=== PATIENT | female | born 1990 | race Caucasian/White ===

== ENCOUNTER 2020-08-01 09:43 | Outpatient (REF) | payer OTHER, SELFPAY ==
--- NOTE | 2020-08-01 09:50 | XR_ITS ---
EXAMINATION: XR KNEE, LEFT CLINICAL INFORMATION: Pain. COMPARISON: None. TECHNIQUE: 4 views of the left knee. FINDINGS: No fracture. Trace suprapatellar joint fluid. Alignment is anatomic. Joint spaces are well maintained. No abnormal soft tissue calcification. XR/XR knee LT 4V IMPRESSION: No evidence of acute osseous abnormality.
== END 2020-08-01 09:44 | disposition home or self-care (01) ==
LOC: HO.XRAY 09:43
PROVIDERS: PCP Internal Medicine; Visit Provider Family Medicine
DX: M25.562 Pain in left knee (principal)
CPT/HCPCS: 73564

== ENCOUNTER 2021-09-07 15:13 | Outpatient (REF) | payer OTHER, SELFPAY ==
--- NOTE | ~2021-09-07 | US_ITS ---
EXAMINATION: US PELVIS CLINICAL INFORMATION: Excessive and irregular menses COMPARISON: None TECHNIQUE: Ultrasound of the pelvis is performed using both transabdominal and transvaginal transducers along with Doppler. Transvaginal imaging is performed due to inadequate visualization transabdominally. FINDINGS: The uterus is anteverted and measures 8.8 x 3.6 x 4.8 cm in dimension. No focal lesion is seen. Endometrial thickness is normal measuring 1.3 cm. There are nabothian cysts in the cervix. The ovaries are normal-appearing. The right ovary measures 3.9 x 3.2 x 2.4 cm. The left ovary measures 3.9 x 2 x 2.4 cm. There is no fluid in the pelvis. US/US pelvic and transvaginal IMPRESSION: Normal pelvic ultrasound.
== END 2021-09-07 15:14 | disposition home or self-care (01) ==
LOC: HO.HMGCX 15:13
PROVIDERS: Visit Provider Advanced Practice Midwife
DX: N92.1 Excessive and frequent menstruation with irregular cycle (principal)
CPT/HCPCS: 76830; 76856

== ENCOUNTER 2022-07-05 15:21 | Outpatient (REF) | payer OTHER, SELFPAY ==
[2022-07-06 02:10] LABS: CT PCR NOT DETECTED (Not Detect.); NG PCR NOT DETECTED (Not Detect.)
[2022-07-06 07:12] LABS: Syphilis Screen Nonreactive (Nonreactive)
[2022-07-06 10:11] LABS: BV Int Neg Control Negative (Negative); BV Int Pos Control Positive (Positive)
[2022-07-06 13:25] LABS: HIV AB/AG Nonreactive (Nonreactive); HIV Num 1 0.07 S/CO (0.00-0.99); Hepatitis B Surface Antigen Negative (Negative); ~HepC Num1 0.06 S/CO (0.00-0.79); ~Hepatitis C Antibody Nonreactive (Nonreactive)
[2022-07-11 21:41] LABS: HPV mRNA E6/E7 rflx Not Detected (Not Detected)
== END 2022-07-05 15:22 | disposition home or self-care (01) ==
LOC: HO.LNP 15:21
PROVIDERS: Visit Provider Advanced Practice Midwife
DX: Z01.419 Encounter for gynecological examination (general) (routine) without abnormal findings (principal); Z11.3 Encounter for screening for infections with a predominantly sexual mode of transmission
CPT/HCPCS: 86780; 86803; 87255; 87340; 87389; 87480; 87491; 87510; 87591; 87624; 87660; 88142

== ENCOUNTER 2023-05-03 13:16 | Outpatient (REF) | payer OTHER, SELFPAY ==
--- NOTE | ~2023-05-03 | XR_ITS ---
EXAMINATION: XR CHEST CLINICAL INFORMATION: Wheezing COMPARISON: None available. TECHNIQUE: 2 views of the chest were obtained. FINDINGS: The cardiac silhouette is upper normal in size. Hilar and mediastinal contours are unremarkable. The lungs are clear. No pleural effusion or pneumothorax. Bony structures are normal. XR/XR chest 2V IMPRESSION: Upper normal-size cardiac silhouette. Otherwise unremarkable exam.
== END 2023-05-03 13:17 | disposition home or self-care (01) ==
LOC: HO.HHCX 13:16
PROVIDERS: Visit Provider General Practice
DX: R06.2 Wheezing (principal)
CPT/HCPCS: 71046

== ENCOUNTER 2023-05-03 14:05 | Outpatient (REF) | payer OTHER, SELFPAY ==
[2023-05-03 18:29] LABS: Influenza A PCR NEGATIVE (Negative); Influenza B PCR NEGATIVE (Negative); Resp Syncy Virus RNA Qual PCR NEGATIVE (Negative); SARS COV2 PCR INHOUSE NEGATIVE (Negative)
[2023-05-08 12:03] LABS: West Nile Virus IgM Antibody <0.90 index (<0.90); West Nile Virus, IgG <1.30 index (<1.30)
== END 2023-05-03 14:06 | disposition home or self-care (01) ==
LOC: HO.HHCL 14:05
PROVIDERS: Visit Provider General Practice
DX: Z20.822 Contact with and (suspected) exposure to COVID-19 (principal); J02.9 Acute pharyngitis, unspecified; R50.9 Fever, unspecified
CPT/HCPCS: 0241U; 36415; 86788; 86789

== ENCOUNTER 2024-02-14 15:08 | Outpatient (REF) | payer BC, SELFPAY ==
[2024-02-14 16:13] LABS: MANUAL DIFF FLAG NO
[2024-02-14 16:20] LABS: Basophils Absolute Auto 0.1 X10*3/uL (0.0-0.2); Basophils Percent Auto 0.7 % (0-2); Eosinophils Absolute Auto 0.1 X10*3/uL (0.0-0.4); Eosinophils Percent Auto 1.6 % (0-4); Hematocrit 46.3 % (37.0-47.0); Hemoglobin 14.7 g/dl (12.0-16.0); Imm Gran Abs Auto 0.02 X10*3/uL (0.00-0.03); Imm Gran Pct Auto 0.2 % (0.0-0.4); Lymphocytes Absolute Auto 1.6 X10*3/uL (1.2-4.9); Lymphocytes Percent Auto 17.8 % (20-40); Mean Corpuscular HGB Conc 31.7 g/dl (31.0-35.0); Mean Corpuscular Hemoglobin 26.6 pg (27.0-33.0); Mean Corpuscular Volume 83.9 fL (80.0-98.0); Mean Platelet Volume 11.7 fL (9.4-12.3); Monocytes Absolute Auto 0.5 X10*3/uL (0.1-1.2); Monocytes Percent Auto 5.9 % (2-11); Neutrophils Absolute Auto 6.6 x10*3/uL (2.0-8.3); Neutrophils Percent Auto 73.8 % (45-73); Platelet Count 278 X10*3/uL (160-400); Red Blood Count 5.52 X10*6/uL (4.20-5.50); Red Cell Distribution Width 12.9 % (11.0-16.0); White Blood Count 8.9 X10*3/uL (4.8-10.8)
[2024-02-14 16:26] LABS: Estimated Average Glucose 105 mg/dL; Hemoglobin A1c % 5.3 % (<6.0)
[2024-02-14 16:43] LABS: Alanine Aminotransferase 10 U/L (0-31); Albumin Level 4.5 g/dL (3.5-5.0); Alkaline Phosphatase 57 U/L (39-117); Anion Gap 11 (12-20); Aspartate Amino Transferase 11 U/L (5-31); Bilirubin Total 0.3 mg/dL (0.0-1.0); Blood Urea Nitrogen 8 mg/dL (9-16); Calcium 9.7 mg/dL (8.4-10.2); Carbon Dioxide 26 mmol/L (22-29); Chloride 108 mmol/L (96-108); Estimated Glomerular Filt Rate > 60; Glucose Random 96 mg/dL (60-115); Sodium 141 mmol/L (135-145); Total Protein 7.5 g/dL (6.5-8.0)
[2024-02-14 16:53] LABS: HIV AB/AG Nonreactive (Nonreactive); HIV Num 1 0.05 S/CO (0.00-0.99)
[2024-02-14 17:03] LABS: TSH reflex Free T4 0.47 uIU/mL (0.32-4.0); Vitamin D 25-OH Total 19.5 ng/mL (>30)
[2024-02-14 17:07] LABS: Folate 9.4 ng/mL (> or = 4.0); Vitamin B12 635 pg/mL (200-900)
[2024-02-17 12:39] LABS: RPR Rapid Plasma Reagin NON-REACTIVE (NON-REACTIVE)
[2024-02-17 14:18] LABS: HCV Log PCR <1.18 NOT DETECTED Log IU/mL (NOT DETECTED); HepC Viral Load <15 NOT DETECTED IU/mL (NOT DETECTED)
== END 2024-02-14 15:09 | disposition home or self-care (01) ==
LOC: HO.HHCL 15:08
PROVIDERS: Visit Provider Internal Medicine
DX: Z00.00 Encounter for general adult medical examination without abnormal findings (principal); F41.8 Other specified anxiety disorders; Z13.1 Encounter for screening for diabetes mellitus; Z13.89 Encounter for screening for other disorder
CPT/HCPCS: 36415; 80053; 82306; 82607; 82746; 83036; 84443; 85025; 86592; 87389; 87522

== ENCOUNTER 2024-10-03 10:09 | Outpatient (REF) | payer BC, SELFPAY ==
[2024-10-03 11:30] LABS: HBS Num1 6.36 mIU/mL (0-7.99); HBc Num1 0.04 S/CO (0.00-0.79); HBsAGNum1 0.42 S/CO (0.00-0.99); HIV AB/AG Nonreactive (Nonreactive); HIV Num 1 0.07 S/CO (0.00-0.99); Hepatitis B Core Antibody Nonreactive (Nonreactive); Hepatitis B Surface Antigen Negative (Negative); Syphilis Screen Nonreactive (Nonreactive); ~HepC Num1 0.06 S/CO (0.00-0.79); ~Hepatitis B Surface Antibody NONREACTIVE (Nonreactive); ~Hepatitis C Antibody Nonreactive (Nonreactive)
[2024-10-03 14:25] LABS: CT PCR NOT DETECTED (Not Detect.); NG PCR NOT DETECTED (Not Detect.)
== END 2024-10-03 10:10 | disposition home or self-care (01) ==
LOC: HO.HHCLNP 10:09
PROVIDERS: PCP Internal Medicine; Visit Provider Internal Medicine
DX: Z71.1 Person with feared health complaint in whom no diagnosis is made (principal)
CPT/HCPCS: 36415; 86704; 86706; 86780; 86803; 87255; 87340; 87389; 87491; 87591

== ENCOUNTER 2024-10-03 14:13 | Outpatient (REF) | payer BC, SELFPAY ==
[2024-10-07 20:09] LABS: C. Trachomatis RNA TMA, Throat NOT DETECTED; N. gonorrhoeae RNA TMA, Throat NOT DETECTED
== END 2024-10-03 14:14 | disposition home or self-care (01) ==
LOC: HO.LNP 14:13
PROVIDERS: Visit Provider Internal Medicine
DX: Z71.1 Person with feared health complaint in whom no diagnosis is made (principal)
CPT/HCPCS: 87491; 87591

== ENCOUNTER 2024-10-16 16:20 | Outpatient (REF) | payer BC, SELFPAY ==
--- OUTSIDE RECORDS SUMMARY | 2024-10-16 18:01 | XMS_ITS | Encounter Summary ---
Author Organization [employer] Address [address] [facility] [address] [place] [address] Care Team Providers Care Consumer Electronics Merchandiser Name Role Phone Dary Noguera MD Primary Care Provide r Encounter Details Date Type Department Care Team (Latest Contact Info) Description 10/16/2024 Travel Social History Tobacco Use Types Packs/Day Years Used Date Smoking Tobacco: Never Passive Smoke Exposure: Never Smokeless Tobacco: Never Depression Answer Date Recorded Patient Health Questionnaire-9 Score 22 02/26/2024 Patient Health Questionnaire-9 Score 22 02/26/2024 Last PHQ-9: Questionnaire Data Not on file 0 02/26/2024 Housing Stability Answer Date Recorded What is your housing situation today? I have chhaya braxton 02/14/[address] you li ve. Do you have problems with any of the following? None of the above 02/14/2024 Food Insecurity Answer Date Recorded Within the past 12 months, y ou worried that your food would run out before you got money to buy more: Never True 02/14/2024 Within the past 12 months,th e food you bought just didn't last and you didn't have enough money to get more: Never True Transportation Answer Date Recorded In the past 12 months, has l ack of transportation kept you from medical appts, meetings, work or from getting things needed for daily living? No 02/14/2024 Utilities Answer Date Recorded In the past 12 months, has t he electric, gas, oil or water company threatened to shut off services in your home? No 02/14/2024 Depression Answer Date Recorded Patient Health Questionnaire-2 Score 6 02/26/2024 Internet Access Answer Date Recorded Internet Access Q1 Yes 04/20/2024 Internet Access Q2 Not on file 04/20/2024 Comments Unknown Sex and Gender Information Value Date Recorded Sex Assigned at Female 06/18/2022 10:36 AM EDT Legal Sex Female 10:36 AM EDT Gender Identity Female 06/18/2022 10:36 AM EDT Sexual Orientation Straight 02/13/2024 2: 38 PM EDT documented as of this encounter Plan of Treatment Not on file documented as of this encounter Visit Diagnoses Not on filedocumented in this encounter Additional Health Concerns Assessment Noted Time PHQ-9 Depression Total Score: 22 024 8:45 AM EDT documented as of this encounter Care Teams Consumer Electronics Merchandiser Relationship Specialty Start Date End Date Dary Noguera MD [address] [place] [phone] PCP - General Family Medicine 09/30/19 documented as of this encounter
--- OUTSIDE RECORDS SUMMARY | 2024-10-16 18:01 | XMS_ITS | Encounter Summary ---
Author Organization [employer] Address [address] [facility] [address] [place] [address] Care Team Providers Care Grinder Setup Operator Name Role Phone Dary Noguera MD Primary Care Provide r Reason for Visit * Reason Comments Nurse Visit Encounter Details Date Type Department Care Team (Latest Contact Info) Description 10/16/2024 2:30 PM EST Clinical Support [facility] [address] [place], [place] [phone] Maria L Mckeon, RN [address] [place] [address] Concern about STI in female without diagnosis Social History Tobacco Use Types Packs/Day Years [...] PM EDT documented as of this encounter Progress Notes * Maria L Mckeon RN - 10/16/2024 2:30 PM EST S: Pt was seen in [facility] 10/03/23 for tingling on tongue at which time HSV Cx was ordered and collected. Swab was not able to be run. O: no lesions on tongue at this time. Pt requesting reswab as she saw TNP in test results on MyChart and is worried. Swab recollected and sent out. A/P: Informed will inform her once results are back. documented in this encounter Plan of Treatment Scheduled Orders Name Type Priority Associated Diagnoses Orde r Schedule Herpes Simplex Virus Culture with Reflex Typing Microbiology Routine Concern about STI in female without diagnosis Ordered: 10/16/2024 documented as of this encounter Visit Diagnoses Diagnosis Concern about STI in female without diagnosis documented in this encounter Additional Health Concerns Assessment Noted Time PHQ-9 Depression Total Score: 22 024 8:45 AM EDT documented as of this encounter Care Teams Grinder Setup Operator Relationship Specialty Start Date End Date Dary Noguera MD [address] [place] [address] PCP - General Family Medicine 09/30/19 documented as of this encounter
--- OUTSIDE RECORDS SUMMARY | 2024-10-16 18:01 | XMS_ITS | Encounter Summary ---
Author Organization [employer] Address [address] [facility] [address] [place] [address] Care Team Providers Care Power Crane Operator Name Role Phone Dary Noguera MD Primary Care Provide r Reason for Visit * Reason Comments Walk-In tingling in throat a claudio after sexual encounter 4-5 days.. Encounter Details Date Type Department Care Team ([facility] st Contact Info) Description 10/03/2024 9:20 AM EST Office Visit [facility] [address] [place], [place] [phone] Niles Jones MD [address] [place], [place] [phone] Concern about STI in female without diagnosis (Primary Dx) Social History Tobacco Use Types Packs/Day Years [...] PM EDT documented as of this encounter Last Filed Vital Signs Vital Sign Reading Time Taken Comments Blood Pressure 139/89 10/03/2024 9:13 AM EST Pulse 85 10/03/2024 9:13 AM EST Temperature - - Respiratory Rate 20 10/03/2024 9:13 AM EST Oxygen Saturation 99% 10/03/2024 9:13 AM EST Inhaled Oxygen Concentration - - Weight 67.2 kg (148 lb 3.2 oz) 10/03/2024 9:13 A M EST Height 157.5 cm (5' 2 ) 10/03/2024 9:13 AM EST Body Mass Index 27.11 10/03/2024 9:13 AM EST documented in this encounter Progress Notes * Niles Navarrete MD - 10/03/2024 9:20 AM EST SUBJECTIVE Yanira Love is a 33 y.o. female who presents for Walk-In (tingling in throat area after sexual encounter 4-5 days..). Pt here for a visit, her main concern is that she started feeling a tingling sensation at the tip of her tongue after a recent sexual encounter 5 days ago. She describes the encounter as only oral sex with a male partner, she admits to a previous sexual encounter with same partner, there was protected intercourse with condoms during that encounter. She reports feeling anxious as a result and would like to be tested for STIs. No other symptoms, no vaginal discharge, no sore throat, no rashes Review of Systems Constitutional: Negative for fever. HENT: Negative for sore throat. Respiratory: Negative for cough and shortness of breath. Cardiovascular: Negative for chest pain. Gastrointestinal: Negative for abdominal pain. Genitourinary: Negative for difficulty urinating, dyspareunia, dysuria, genital sores, pelvic pain,vaginal discharge and vaginal pain. Skin: Negative for rash. Neurological: Negative for headaches. No Known Allergies OBJECTIVE Vitals: 10/03/24 0913 BP: 139/89 BP Location: Left arm Patient Position: Sitting BP Cuff Size: Adult Pulse: 85 Resp: 20 SpO2: 99% Weight: 148 lb 3.2 oz (67.2 kg) Height: 5' 2 (1.575 m) Physical Exam Vitals reviewed. Constitutional: Appearance: Normal appearance. HENT: Head: Normocephalic and atraumatic. Right Ear: External ear normal. Left Ear: External ear normal. Nose: Nose normal. Mouth/Throat: Lips: Dunbar. Mouth: Mucous membranes are moist. Pharynx: Oropharynx is clear. Tonsils: No tonsillar exudate or tonsillar abscesses. Comments: Tongue: right at the tip of the tongue there is mild irritation, no ulcer, no blister Eyes: Conjunctiva/sclera: Conjunctivae normal. Cardiovascular: Rate and Rhythm: Normal rate and regular rhythm. Pulmonary: Effort: Pulmonary effort is normal. Breath sounds: Normal breath sounds. Skin: General: Skin is warm. Neurological: Mental Status: She is alert. Mental status is at baseline. Assessment/Plan Problem List Items Addressed This Visit Concern about STI in female without diagnosis - Primary Pt with c/o mild tingling at the tip of her tongue after oral sex five days ago with male partner, no other symptoms On exam mild irritation on the tip of her tongue Plan: Herpes Cx obtained from the tip of her tongue. Other STI testing ordered Discussed with patient PrEP, she promised to think about it, reports using condoms. Instructed to call or come back if she experiences other symptoms Relevant Orders Chlamydia/N. Gonorrhoeae RNA, TMA, Throat Chlamydia/N. Gonorrhoeae RNA, TMA, Urine Hepatitis B Core Antibody, Total Hepatitis B Surface Antibody, Qualitative Hepatitis B surface antigen, EIA Hepatitis C Antibody with Reflex to HCV, RNA, Quantitative, Real-Time PCR HIV-1/2 Antigen and Antibodies, Fourth Generation, with Reflexes Syphilis Screen Herpes Simplex Virus Culture with Reflex Typing documented in this encounter Miscellaneous Notes * Assessment & Plan Note - Niles Navarrete MD - 10/03/2024 10:53 AM EST Associated Problem(s): Concern about STI in female without diagnosis Pt with c/o mild tingling at the tip of her tongue after oral sex five days ago with male partner, no other symptoms On exam mild irritation on the tip of her tongue Plan: Herpes Cx obtained from the tip of her tongue. Other STI testing ordered Discussed with patient PrEP, she promised to think about it, reports using condoms. Instructed to call or come back if she experiences other symptoms documented in this encounter Plan of Treatment Scheduled Orders Name Type Priority Associated Diagnoses Orde r Schedule Chlamydia/N. Gonorrhoeae RNA, TMA, Throat Microbiology Routine Concern about STI in female without diagnosis Expected: 10/03/2024 (Approximate), Expires: 10/03/2025 documented as of this encounter Procedures Procedure Name Priority Date/Time Associated Diagnosis Comments SYPHILIS SCREEN Routine 10/03/2024 10:25 AM EST Concern about STI in female without diagnosis HEPATITIS C AB W/REFL TO HCV RNA, QN, PCR Routine 10/03/2024 10:25 AM EST Concern about STI in female without diagnosis HEPATITIS B SURFACE ANTIGEN, EIA Routine 10/03/2024 10:25 AM EST Concern about STI in female without diagnosis HEPATITIS B CORE AB TOTAL Routine 10/03/2024 10:25 AM EST Concern about STI in female without diagnosis HIV 1/2 ANTIGEN/ANTIBODY, FOURTH GENERATION W/RFL Routine 10/03/2024 10:25 AM EST Concern about STI in female without diagnosis HEPATITIS B SURFACE ANTIBODY, QUALITATIVE Routine 10/03/2024 10:25 AM EST Concern about STI in female without diagnosis CHLAMYDIA/N. GONORRHOEAE RNA, TMA, UROGENITAL Routine 10/03/2024 10:21 AM EST Concern about STI in female without diagnosis HERPES CULTURE WITH REFLEX TYPING Routine 10/03/2024 9:51 AM EST Concern about STI in female without diagnosis documented in this encounter Results * Syphilis Screen (10/03/2024 10:25 AM EST) Syphilis Screen Nonreactive Nonreactive [facility] Blood Venous blood specimen / Unknown 10/03/2024 10:25 AM EST 10/03/2024 10:25 AM EST Niles Navarrete MD LAB BLOOD ORDERABLES Final Result [facility] [address] [place] [phone] * HIV-1/2 Antigen and Antibodies, Fourth Generation, with Reflexes (10/03/2024 10:25 AM EST) HIV AB/AG Nonreactive Nonreactive [facility] Comment:HIV-1 p24 Ag and/or HIV-1/HIV-2 Ab not detected.A test result that is nonreactive does not exclude thepossibility of exposure to or infection with HIV-1 and/orHIV-2. Nonreactive results in this assay for individualswith prior exposure to HIV-1 and/or HIV-2 may be due toantigen and antibody levels that are below the limit ofdetection of this assay.The [employer] HIV Ag/Ab Combo assay result andsupplemental assay results should be interpreted inconjunction with the patient's clinical presentation,history and other laboratory results. If the results areinconsistent with clinical evidence, additional testing issuggested to confirm the result. Blood Venous blood specimen / Unknown 10/03/2024 10:25 AM EST 10/03/2024 10:25 AM EST us Niles Navarrete MD LAB BLOOD ORDERABLES Final Result [facility] [address] [place] [phone] * Hepatitis C Antibody with Reflex to HCV, RNA, Quantitative, Real-Time PCR (10/03/2024 10:25 AM EST) Pathologist [facility] Hepatitis C Antibody Nonreactive Nonreactive [facility] Comment:Antibodies to HCV no t detected; does not exclude early acuteHCV infection. Blood Venous blood specimen / Unknown 10/03/2024 10:25 AM EST 10/03/2024 10:25 AM EST us Niles Navarrete MD LAB BLOOD ORDERABLES Final Result Performing Organization Address City/[facility]/ZIP Co de Phone Number [facility] [address] [place] [phone] * Hepatitis B surface antigen, EIA (10/03/2024 10:25 AM EST) Pathologist [facility] Hepatitis B Surface Ag Negative Negative [facility] Blood Venous blood specimen / Unknown 10/03/2024 10:25 AM EST 10/03/2024 10:25 AM EST Niles Navarrete MD LAB BLOOD ORDERABLES Final Result Performing Organization Address City/[facility]/ZIP Co de Phone Number [facility] [address] [place] [address] [phone] * Hepatitis B Surface Antibody, Qualitative (10/03/2024 10:25 AM EST) ~Hepatitis B Surface Antibody NONREACTIVE Nonreactive [facility] Comment:Nonreactive: < 8.00 mIU/mL Blood Venous blood specimen / Unknown 10/03/2024 10:25 AM EST 10/03/2024 10:25 AM EST Niles Navarrete MD LAB BLOOD ORDERABLES Final Result Performing Organization Address City/[facility]/ZIP Co de Phone Number [facility] [address] [place] [phone] * Hepatitis B Core Antibody, Total (10/03/2024 10:25 AM EST) Hepatitis B Core Antibody Nonreactive Nonreactive [facility] Blood Venous blood specimen / Unknown 10/03/2024 10:25 AM EST 10/03/2024 10:25 AM EST Niles Navarrete MD LAB BLOOD ORDERABLES Final Result Performing Organization Address [facility] de Phone Number [facility] [address] [place] [phone] * Chlamydia/N. Gonorrhoeae RNA, TMA, Urine (10/03/2024 10:21 AM EST) [facility] CT PCR NOT DETECTED Not Detect. [facility] Comment:A not detected test result does not exclude the possibilityof infection because test results can be affected byimproper specimen collection, concurrent antibiotic therapy,or the number of organisms in the specimen which may bebelow the sensitivity of the test. As with many diagnostictests, results from the Xpert CT/NG assay should beinterpreted in conjunction with other laboratory andclinical data available to the clinician.Xpert CT/NG performance has not been evaluated in patientsless than 14 years of age. The assay should not be used forthe evaluationof suspected sexual abuse or for other medico-legalindications. Additional testing is recommended in anycircumstance when false positive or false negative resultscould lead to adverse medical, social or psychologicalconsequences. NG PCR NOT DETECTED Not Detect. [facility] Comment:A not detected test result does not exclude the possibilityof infection because test results can be affected byimproper specimen collection, concurrent antibiotic therapy,or the number of organisms in the specimen which may bebelow the sensitivity of the test. As with many diagnostictests, results from the Xpert CT/NG assay should beinterpreted in conjunction with other laboratory andclinical data available to the clinician.Xpert CT/NG performance has not been evaluated in patientsless than 14 years of age. The assay should not be used forthe evaluationof suspected sexual abuse or for other medico-legalindications. Additional testing is recommended in anycircumstance when false positive or false negative resultscould lead to adverse medical, social or psychologicalconsequences. Urine (Urine, Random) 10/03/2024 10:21 AM EST 10/03/2024 10:39 AM EST Narrative [facility] - 10/03/2024 2:25 PM EST Urine Niles Navarrete MD LAB MICROBIOLOGY - GE NERAL ORDERABLES Final Result Performing Organization Address [facility] de Phone Number [facility] [address] [place] [phone] * Herpes Simplex Virus Culture with Reflex Typing (10/03/2024 9:51 AM EST) HSV Culture/Type SEE NOTE [facility] Comment:HERPES SIMPLEX VIRUS CULTURE W/RFL TO TYPING Micro Number: [id number] Test Status: Final Specimen Source: Lb Specimen Quality: Adequate Result: Test not performed. The specimen was received in an collection container. Test not performed. The specimen was received in an collection container.THIS TEST WAS PERFORMED AT:[facility] [id number] MERATI,MD Swab Topography unknown / Unknown 10/03/2024 9:51 AM EST 10/03/2024 1:52 PM EST Niles Navarrete MD LAB MICROBIOLOGY - GE NERAL ORDERABLES Final Result Performing Organization Address [facility] Co de Phone Number [facility] [address] [place] [phone] documented in this encounter Visit Diagnoses Diagnosis Concern about STI in female without diagnosis- Primary documented in this encounter Additional Health Concerns Assessment Noted Time PHQ-9 Depression Total Score: 22 024 8:45 AM EDT documented as of this encounter Care Teams Power Crane Operator Relationship Specialty Start Date End Date Dary Noguera MD [address] [place] [address] PCP - General Family Medicine 09/30/19 documented as of this encounter
--- OUTSIDE RECORDS SUMMARY | 2024-10-16 18:01 | XMS_ITS | Clinical Summary ---
Author Organization [facility] Address [address] [place] [address] Care Team Providers Care Tractor Trailer Mechanic Name Role Phone Unavailable Primary Care Provider Unavailabl e Source Comments PLEASE NOTE, if this patient is a minor, it may be UNLAWFUL to discuss sensitive information that is contained in these records (such as FAMILY PLANNING, MENTAL HEALTH or SUBSTANCE ABUSE) with the minor patient's parent or other person without the patient's specific authorization.[facility] Allergies No known active allergies Medications No known medications Active Problems No known active problems Social History Tobacco Use Types Packs/Day Years Used Date Smoking Tobacco: Every Day Cigarettes Smokeless Tobacco: Never Tobacco Cessation:Ready to Q uit: Not Asked; Counseling Given: Not Answered Social Connections Answer Date Recorded Connectedness 0 05/06/2024 Financial Resource Strain Answer Date R ecorded Financial Resource Strain 0 2022 Stress Answer Date Recorded Stress 0 08/31/2022 Physical Activity Answer Date Recorded Physical Activity 0 08/31/2022 Food Insecurity Answer Date Recorded Food 0 05/14/2024 Transportation Needs Answer Date Record ed Transportation 0 08/31/2022 Housing Stability Answer Date Recorded Housing 0 08/31/2022 Safety and Environment Answer Date Vijay rded Safety 0 08/31/2022 Utilities Answer Date Recorded Utilities 0 08/31/2022 Employment Answer Date Recorded Stress 0 05/06/2024 Comments Unknown Sex and Gender Information Value Date Recorded Sex Assigned at Not on file Legal Sex Female 11:36 AM PDT Gender Identity Not on file Sexual Orientation Not on file Last Filed Vital Signs Vital Sign Reading Time Taken Comments Blood Pressure 122/72 10/29/2022 1:52 PM EDT Pulse 57 10/29/2022 1:52 PM EDT Temperature - - Respiratory Rate - - Oxygen Saturation - - Inhaled Oxygen Concentration - - Weight - - Height - - Body Mass Index - - Plan of Treatment Health Maintenance Due Date Last Done Comments Diabetes Screening 1988 HPV Screening 1988 Hepatitis C Screening 1988 Pap + HPV 1988 Tobacco Cessation Counseling (#1) 1988 Tobacco Screening 1988 HIV Screening 12/24/2003 Relationship Safety Screening/Counseling 12/24/2003 Imm-DTaP/Tdap/Td (1 - Tdap) 12/24/2007 Imm-Hepatitis B (1 of 3 - 19+ 3-dose series) Imm-Pneumococcal (1 of 2 - PCV) 12/24/2007 Cervical Cancer Screening 2009 Pap Smear 2009 Dental BW 10/25/2023 10/22/2022 Dental Examination 10/25/2023 10/22/2022 Dental Perio Charting 10/25/2023 10/22/2022 Dental Prophy 10/25/2023 10/22/2022 [id number] ( season) 2024 Imm-Influenza (#1) 2024 Alcohol and Drug Screen 08/19/2024 Depression Annual Screen 08/19/2024 Hypertension Screening (#1) 10/28/2025 Dental FMX/Pano 10/25/2027 10/22/2022 Cervical Ablation/Cold-Knife Conization Discontinued Cervical Cryotherapy Discontinued Colposcopy Discontinued Endometrial Biopsy Discontinued Excision/Leep Discontinued HPV Genotyping Discontinued Vaginal Pap Discontinued Vulvoscopy Discontinued Procedures Procedure Name Priority Date/Time Associated Diagnosis Comments INTRAORAL - COMP SERIES OF RADIOGRAPHIC IMAGES Routine 10/22/2022 1:40 PM EST Chronic gingivitis, plaque induced PROPHYLAXIS - ADULT Routine 10/22/2022 1 :40 PM EST Chronic gingivitis, plaque induced COMP ORAL EVALUATION - NEW/ESTABLISHED PATIENT Routine 10/22/2022 1:40 PM EST Chronic gingivitis, plaque induced from Last 3 Months or Most Recently Relevant to Health Maintenance Insurance [place] Member Subscriber Plan / Payer (Ef fective 2022-Present) Name:Yanira Garcia Relation to Subscriber:Self Name:Yanira Garcia Payer ID:[id number] Group ID:Not on file Type:Medicaid Address: [place] [id number] [facility]
--- OUTSIDE RECORDS SUMMARY | 2024-10-16 18:01 | XMS_ITS | Clinical Summary ---
Author Organization [employer] Address [address] [place] [address] [address] [place] [address] Care Team Providers Care Family Services Specialist Name Role Phone Dary Noguera MD Primary Care Provide r Allergies No known active allergies Medications * This document contains information received from the source organization and may not represent a complete record from that organization. [facility] Covid-19 At Home Test Kit kit USE ACCORDING TO THE RECYCLING ASSISTANT'S DIRECTIONS 3 Active albuterol 108 (90 Base) MCG/ACT inhaler Inhale 2 puffs every 6 (six) hours if needed for wheezing. 18 g 11 3 Active Active Problems Problem Noted Date Diagnosed Date Concern about STI in female without diagnosis Assessment & Plan (10/03/2024 10:53 AM EST): Pt with c/o mild tingling at the [...] come back if she experiences other symptoms History of trauma 04/08/2024 Severe episode of recurrent major depressive disorder, without psychotic features 03/06/2024 Depression with anxiety 02/14/2024 Assessment & Plan (02/14/2024 4:49 PM EDT): BHN referral We talked about non-medication interventions for anxiety including exercise, meditation, counseling, mindfulness practices, zoltan chi. Also recommend consideration for medication start for persistent daily anxiety negatively impacting quality of life and activities. Fever 05/06/2023 Assessment & Plan (05/06/2023 5:52 AM EDT): Constellation of symptoms suggestive of many viral, bacterial, or parasitic infections, especially with recent travel history to [facility]. - vital signs stable and pt improving - continue supportive care, with hydration and gradual return to exercise/activity - flu, covid, strep negative - due to recent travel consider malaria, West Nile, dengue. Lab slips given to test for malaria and West Nile, to lab if symptoms persist or worsen Wheezing 05/03/2023 Assessment & Plan (05/03/2023 1:09 PM EDT): CXR Encounter for screening and preventative care Assessment & Plan (02/14/2024 4:48 PM EDT): See HPI Assessment & Plan (02/08/2023 11:17 AM EDT): Please refer to HPI Class 1 obesity due to exces s calories without serious comorbidity in adult 02/08/2023 Assessment & Plan (02/08/2023 11:17 AM EDT): Today extensive discussion was done about life style modifications I advise healthy diet (low calorie) and cardiovascular exercise Vitamin D deficiency 03/23/2021 Encounters Date Type Department Care Team Description 10/16/2024 2:30 PM EST Clinical Support [facility] [address] [place] [phone] Maria L Mckeon, RN Concern about STI in female without diagnosis 10/16/2024 Travel 10/12/2024 Telephone [facility] [address] [place] [address] Maria L Mckeon, flower shop laborer/designer Orders 10/03/2024 9:20 AM EST Office Visit [facility] [address] [place] [address] Niles Jones MD Concern about STI in female without diagnosis (Primary Dx) from Last 3 Months Social History Tobacco Use Types Packs/Day Years Used Date Smoking Tobacco: Never Passive Smoke Exposure: Never Smokeless Tobacco: Never Tobacco Cessation:Counseling Given: Not Answered Depression Answer Date Recorded Patient Health Questionnaire-9 [...] Orientation Straight 02/13/2024 2: 38 PM EDT Last Filed Vital Signs Vital Sign Reading Time Taken Comments Blood Pressure 139/89 10/03/2024 9:13 AM EST Pulse 85 10/03/2024 9:13 AM EST Temperature 36.1 ??C (96.9 ??F) 02/14/2024 2:04 PM ED T Respiratory Rate 20 10/03/2024 9:13 AM EST Oxygen Saturation 99% 10/03/2024 9:13 AM EST Inhaled Oxygen Concentration - - Weight 67.2 kg (148 lb 3.2 oz) 10/03/2024 9:13 A M EST Height 157.5 cm (5' 2 ) 10/03/2024 9:13 AM EST Body Mass Index 27.11 10/03/2024 9:13 AM EST Plan of Treatment Health Maintenance Due Date Last Done Comments Family Planning (PISQ) 12/24/2003 DTaP/Tdap/Td Vaccines (1 - Tdap) 12/24/2007 Hepatitis B Vaccines (1 of 3 - 19+ 3-dose series) 12/24/2007 COVID-19 Vaccine (1 - 2023- season) 2024 Influenza Vaccine (#1) 2024 Depression Monitoring (PHQ-9) 08/28/2024 02/26/2024, 02/26/2024 Alcohol/Substance Use Screening 02/13/2025 02/14/2024 SDOH Screening 02/13/2025 02/14/2024 Depression Screening 02/25/2025 02/26/2024, 02/26/20 24 Pap Smear 07/05/2025 07/05/2022, 07/05/2022 Tobacco Screening 10/03/2025 10/03/2024 Lipid Panel 11/30/2026 11/30/2021 Cervical Cancer Screening 07/05/2027 HPV/Cotest 07/05/2027 07/05/2022, 06/19, 10/29/2019 Zoster Vaccines (1 of 2) 2038 RSV Patients and Patients Aged 60 years or older (1 - 1-dose 75+ series) 12/24/2063 HIV Screening Completed 10/03/2024, 01/18, 07/05/2022, Additional history exists Hepatitis C Screening Completed 10/03/2024 , 02/14/2024, 07/05/2022, Additional history exists HIB Vaccines Aged Out No longer eligi ble based on patient's age to complete this topic HPV Vaccines Aged Out No longer eligi ble based on patient's age to complete this topic Hepatitis A Vaccines Aged Out No long er eligible based on patient's age to complete this topic IPV Vaccines Aged Out No longer eligi ble based on patient's age to complete this topic Meningococcal Vaccine Aged Out No zana loco eligible based on patient's age to complete this topic Pneumococcal Vaccine: Pediatrics (0 to 5 Years) and At-Risk Patients (6 to 49) Years) Aged Out No longer eligible based on patient's age to complete this topic RSV under 20 months Aged Out No longe r eligible based on patient's age to complete this topic Rotavirus Vaccines Aged Out No longer eligible based on patient's age to complete this topic Procedures Procedure Name Priority Date/Time Associated Diagnosis [...] female without diagnosis CHLAMYDIA/N. GONORRHOEAE RNA, TMA, THROAT Routine 10/03/2024 12:00 AM EST Depression with anxiety ZZZ HISTORICAL HPV E6/E7 RFLX RUBY 16 18/45 Routine 07/05/2022 3:21 PM EST PAP SMEAR Routine 07/05/2022 3:21 PM EST LIPID PANEL, STANDARD Routine 11/30/2021 4:02 PM EDT from Last 3 Months or Most Recently Relevant to Health Maintenance Results * Syphilis Screen (10/03/2024 10:25 AM EST) Syphilis Screen Nonreactive Nonreactive [facility] Blood Venous blood specimen / Unknown 10/03/2024 10:25 AM EST 10/03/2024 10:25 AM EST us Niles Navarrete MD LAB BLOOD ORDERABLES Final Result Performing Organization Address [facility] Co de Phone Number [facility] [address] [place] [phone] * Hepatitis C Antibody with Reflex to HCV, RNA, Quantitative, Real-Time PCR (10/03/2024 10:25 AM EST) Hepatitis C Antibody Nonreactive Nonreactive [facility] Comment:Antibodies to HCV no t detected; does not exclude early acuteHCV infection. Blood Venous blood specimen / Unknown 10/03/2024 10:25 AM EST 10/03/2024 10:25 AM EST us Niles Navarrete MD LAB BLOOD ORDERABLES Final Result Performing Organization Address City/[facility]/ZIP Co de Phone Number [facility] [address] [place] [phone] * Hepatitis B surface antigen, EIA (10/03/2024 10:25 AM EST) Hepatitis B Surface Ag Negative Negative [facility] Blood Venous blood specimen / Unknown 10/03/2024 10:25 AM EST 10/03/2024 10:25 AM EST us Niles Navarrete MD LAB BLOOD ORDERABLES Final Result [facility] [address] [place] [phone] [phone] * Hepatitis B Core Antibody, Total (10/03/2024 10:25 AM EST) Hepatitis B Core Antibody Nonreactive Nonreactive [facility] Blood Venous blood specimen / Unknown 10/03/2024 10:25 AM EST 10/03/2024 10:25 AM EST Niles Navarrete MD LAB BLOOD ORDERABLES Final Result Performing Organization Address [facility] Co de Phone Number [facility] [address] [place] [phone] * HIV-1/2 Antigen and Antibodies, Fourth Generation, with Reflexes (10/03/2024 10:25 AM EST) Pathologist [facility] HIV AB/AG Nonreactive Nonreactive [facility] Comment:HIV-1 p24 Ag and/or HIV-1/HIV-2 Ab not detected.A test result that is nonreactive does not exclude thepossibility of exposure to or infection with HIV-1 and/orHIV-2. Nonreactive results in this assay for individualswith prior exposure to HIV-1 and/or HIV-2 may be due toantigen and antibody levels that are below the limit ofdetection of this assay.The [employer] Mobile HIV Ag/Ab Combo assay result andsupplemental assay results should be interpreted inconjunction with the patient's clinical presentation,history and other laboratory results. If the results areinconsistent with clinical evidence, additional testing issuggested to confirm the result. Blood Venous blood specimen / Unknown 10/03/2024 10:25 AM EST 10/03/2024 10:25 AM EST us Niles Navarrete MD LAB BLOOD ORDERABLES Final Result Performing Organization Address [facility] Co de Phone Number [facility] [address] [place] [phone] * Hepatitis B Surface Antibody, Qualitative (10/03/2024 10:25 AM EST) ~Hepatitis B Surface Antibody NONREACTIVE Nonreactive [facility] Comment:Nonreactive: < 8.00 mIU/mL Blood Venous blood specimen / Unknown 10/03/2024 10:25 AM EST 10/03/2024 10:25 AM EST us Niles Navarrete MD LAB BLOOD ORDERABLES Final Result [facility] [address] [place] [phone] * Chlamydia/N. Gonorrhoeae RNA, TMA, Urine (10/03/2024 10:21 AM EST) Pathologist [facility] CT PCR NOT DETECTED Not Detect. [facility] Comment:A not detected test result [...] psychologicalconsequences. NG PCR NOT DETECTED Not Detect. [facility] Comment:A not detected test result [...] AM EST 10/03/2024 10:39 AM EST Narrative [facility] - 10/03/2024 2:25 PM EST Urine Niles Navarrete MD LAB MICROBIOLOGY - GE NERAL ORDERABLES Final Result Performing Organization Address City/[facility]/ZIP Co de Phone Number [facility] [address] [place] [phone] * Herpes Simplex Virus Culture with Reflex Typing (10/03/2024 9:51 AM EST) HSV Culture/Type SEE NOTE [facility] Comment:HERPES SIMPLEX VIRUS CULTURE W/RFL TO TYPING Micro Number: [id number] Test Status: Final Specimen Source: Lb Specimen Quality: Adequate Result: Test not performed. The specimen was received in an collection container. Test not performed. The specimen was received in an collection container.THIS TEST WAS PERFORMED AT:[facility] [id number] MERATI,MD Swab Topography unknown / Unknown 10/03/2024 9:51 AM EST 10/03/2024 1:52 PM EST Niles Navarrete MD LAB MICROBIOLOGY - GE NERAL ORDERABLES Final Result Performing Organization Address [facility] Co de Phone Number [facility] [address] [place] [phone] * Chlamydia/N. Gonorrhoeae RNA, TMA, Throat (10/03/2024 12:00 AM EST) C. Trachomatis RNA TMA, Throat NOT DETECTED [facility] N. gonorrhoeae RNA TMA, Throat NOT DETECTED [facility] Comment:REFERENCE RANGE: NOT DETECTEDMethodology: Cigarette Tester Mediated Amplification (TMA) to detect RNA.The analytical performance characteristics of this assayhave been determined by [facility]. The modificationshave not been cleared or approved by the FDA. This assay hasbeen validated pursuant to the CLIA regulations and is usedfor clinical purposes.For additional information, please refer tohttps://Wyzerr.Klout/faq/AQE040(This link is being provided for informational/educationalpurposes only.)THIS TEST WAS PERFORMED AT:[employer] [id number] [place] [address]YZIOEKAYLA LARKIN MD,PHD,GENIA 10/03/2024 10/03/2024 2:1 5 PM EST Niles Navarrete MD LAB MICROBIOLOGY - NERAL ORDERABLES Final Result [facility] [address] [place] [phone] [phone] * HPV E6/E7 RFLX RUBY 16 18/45 (07/05/2022 3:21 PM EST) HPV mRNA E6/E7 rflx Not Detected Not Detected [facility] Comment: Methodology: Cigarette Tester-Mediated Amplification This assay detects E6/E7 viral messenger RNA (mRNA) from 14 high-risk HPV types (16,18,31,33,35,39,45,51,52,56,58,59,66,68). Cervical sources are required for HPV testing. If a vaginal source from a patient who has had a total hysterectomy with removal of cervix was submitted, please contact the testing laboratory for alternative testing options. For additional information, please refer to http://Wyzerr.Klout/faq/OPF773f1 (This link if provided for information/ educational purposes only.) THIS TEST WAS PERFORMED AT: [facility] [address] [place] [address],[address] [place], [place] ??[phone] CHANNING LYNNE MD 07/05/2022 3:21 PM EST us Joanna Hernandez HISTORICAL/NON ORDERABLE LABS Fi nal Result [facility] * Pap Smear (07/05/2022 3:21 PM EST) 07/05/2022 3:21 PM EST 07/06/2022 9:50 AM EST Narrative [facility] - 07/27/2022 5:28 PM EST ----- ------- Name: Yanira Garcia ? Age/Sex: 31/F ? : 1990 Unit#: [id number] ?? Attend Dr: Joanna Hernandez CNM ?Re07/05/22 ?Status: DEP REF ? Location: HO.LNP ?Disch: ? ----- ------- SPEC : [id number] ?RECD: 07/06/22-48 ? STATUS: ??SOUT ? REQ NUM: [id number] ? PAYAM: 07/05/22-1521 ? SUBM DR: MaryJoanna GOMEZ ? ENTERED: ??07/06/22-1245 ?SP TYPE: Pap Smr ?OTHR DR: ? ORDERED: ??Pap Smear ? Interpretation ?? Satisfactory for evaluation. ?? Negative for intraepithelial lesion or malignancy. ?? Moderate inflammation. ?? Coccobacilli consistent with shift in vaginal greg. ? HPV mRNA E6/E7: ?NOT DETECTED ? This assay detects E6/E7 viral messenger RNA (mRNA) from 14 high-risk HPV types (16, 18, ?? 31, 33, 35, 39, 45, 51, 52, 56, 58, 59, 66, 68) ? HPV testing performed by [facility], [place], [place]. ??See reference laboratory ?? portion of the EMR for entire report. ?Clinical Information LMP: 06/21/22 Previous PAP test: 10/29/19, WNL ? Material Received ?? ThinPrep-Cervical ----- ------- Signed (signature on file) Faith Andrade 07/27/22 1728 ? ----- ------- ? END OF REPORT ? [facility] External Provider LAB CYT OLOGY ORDERABLES Final Result [facility] [address] [place] [phone] * (ABNORMAL) LIPID PANEL, STANDARD (11/30/2021 4:02 PM EDT) [facility] Chol/HDLC Ratio 3.3 <5.0 (calc) [facility] Cholesterol, Total 163 <200 mg/dL [facility] HDL Cholesterol 49(L) > OR = 50 mg/dL [facility] LDL Cholesterol 98 mg/dL (calc) [facility] Comment: Reference range: <100 ?? Desirable range <100 mg/dL for primary prevention; ?? <70 mg/dL for patients with CHD or diabetic patients ?? with > or = 2 CHD risk factors. ?? LDL-C is now calculated using the Josse ?? calculation, which is a validated novel method providing ?? better accuracy than the Friedewald equation in the ?? estimation of LDL-C. ?? Michael HERNANDEZ et al. BAR. 2013;310(19): 1019-0497 ?? (http://education.Ziptronix.Drippler/faq/UQI780) Non-HDL Cholesterol 114 <130 mg/dL (calc) [facility] Comment: For patients with diabetes plus 1 major ASCVD risk ?? factor, treating to a non-HDL-C goal of <100 mg/dL ?? (LDL-C of <70 mg/dL) is considered a therapeutic ?? option. Triglycerides 69 <150 mg/dL [facility] 11/30/2021 4:02 PM EDT us Dary Mg MD LAB BLOOD ORDERABLES Final Result [facility] [address] from Last 3 Months or Most Recently Relevant to Health Maintenance Insurance [facility] Care Teams Family Services Specialist Relationship Specialty Start Date End Date Dary Noguera MD [address] [place] [phone] PCP - General Family Medicine 09/30/19
--- OUTSIDE RECORDS SUMMARY | 2024-10-16 18:01 | XMS_ITS | Encounter Summary ---
Author Organization [employer] Address [address] [place] [address] [address] [place] [address] Care Team Providers Care Straight Knife Machine Cutter Name Role Phone Dary Noguera MD Primary Care Provide r Reason for Visit * Reason Onset Date Comments Lab Orders 10/12/2024 Encounter Details Date Type Department Care Team ([facility] st Contact Info) Description 10/12/2024 Telephone [facility] [address] [place], [place] [phone] Maria L Mckeon, RN [address] [place] [address] Lab Orders Social History Tobacco Use Types Packs/Day Years [...] PM EDT documented as of this encounter Miscellaneous Notes * Telephone Encounter - Maria L Mckeon RN - 10/16/2024 2:42 PM EST Telephone call placed to pt. Informed labs came back normal except HSV was not run d/t an error. Ptdeclines current tongue tingling or Sx but states would still like to repeat swab. * Telephone Encounter - Maria L Mckeon RN - 10/12/2024 11:55 AM EST HSV Cx collected 10/03/24 not run d/t collection tube expiring while in transit. Flagged and sent toprovider. Also sent secure chat to see if it should be recollected. Pending provider response. documented in this encounter Plan of Treatment Not on file documented as of this encounter Visit Diagnoses Diagnosis Concern about STI in female without diagnosis documented in this encounter Additional Health Concerns Assessment Noted Time PHQ-9 Depression Total Score: 22 024 8:45 AM EDT documented as of this encounter Care Teams Straight Knife Machine Cutter Relationship Specialty Start Date End Date Dary Noguera MD [address] [place] [phone] PCP - General Family Medicine 09/30/19 documented as of this encounter
== END 2024-10-16 16:21 | disposition home or self-care (01) ==
LOC: HO.HHCLNP 16:20
PROVIDERS: Visit Provider Internal Medicine
DX: Z71.1 Person with feared health complaint in whom no diagnosis is made (principal)
CPT/HCPCS: 36415; 87255

== ENCOUNTER 2025-05-31 14:43 | Outpatient (REF) | payer BC, SELFPAY ==
--- OUTSIDE RECORDS SUMMARY | 2025-05-31 13:45 | XMS_ITS | Encounter Summary ---
Author Organization [employer] Address [address] [place] [address] 7 [place] [address] Care Team Providers Care Engraver Tire Mold Name Role Phone Dary Noguera MD Primary Care Provide r Encounter Details Date Type Department Care Team ([facility] st Contact Info) Description 05/31/2025 1:45 PM EDT Office Visit [facility] [address] [place] [address] Araceli Keita FNP [address] [place] [address] Adult wellness visit (Primary Dx) Social History Tobacco Use Types Packs/Day Years Used Date Smoking Tobacco: Never Passive Smoke Exposure: Never Smokeless Tobacco: Never Depression Answer Date Recorded Patient Health Questionnaire-9 Score 0 05/31/2025 Patient Health Questionnaire-9 Score 0 05/31/2025 Last PHQ-9: Questionnaire Data Not on file 1 Housing Stability Answer Date Recorded What is your housing situation today? I have chhaya braxton 05/31/[address] you li ve. Do you have problems with any of the following? None of the above 05/31/2025 Food Insecurity Answer Date Recorded Within the past 12 months, y ou worried that your food would run out before you got money to buy more: Never True 05/31/2025 Within the past 12 months,th e food you bought just didn't last and you didn't have enough money to get more: Never True Transportation Answer Date Recorded In the past 12 months, has l ack of transportation kept you from medical appts, meetings, work or from getting things needed for daily living? No 05/31/2025 Utilities Answer Date Recorded In the past 12 months, has t he electric, gas, oil or water company threatened to shut off services in your home? No 05/31/2025 Depression Answer Date Recorded Patient Health Questionnaire-2 Score 0 05/31/2025 Internet Access Answer Date Recorded Internet Access Q1 Yes 05/31/2025 Internet Access Q2 Not on file 05/31/2025 Comments No Sex and Gender Information Value Date Recorded Sex Assigned at Female 06/18/2022 10:36 AM EDT Legal Sex Female 10:36 AM EDT Gender Identity Female 06/18/2022 10:36 AM EDT Sexual Orientation Straight 02/13/2024 2: 38 PM EDT documented as of this encounter Last Filed Vital Signs Vital Sign Reading Time Taken Comments Blood Pressure 124/70 05/31/2025 1:50 PM EDT Pulse 81 05/31/2025 1:50 PM EDT Temperature 36.6 C (97.9 F) 05/31/2025 1:50 PM EDT Respiratory Rate 20 05/31/2025 1:50 PM EDT Oxygen Saturation 99% 05/31/2025 1:50 PM EDT Inhaled Oxygen Concentration - - Weight 68.5 kg (151 lb 2 oz) 05/31/2025 1:50 PM EDT Height 157.5 cm (5' 2 ) 05/31/2025 1:50 PM EDT Body Mass Index 27.64 05/31/2025 1:50 PM EDT documented in this encounter Functional Status * Over the past 2 weeks, how often have you been bothered by any of the following problems? Question Answer Date of Assessment Author Patient Health Questionnaire -2 Score 0 05/31/2025 1:58 PM EDT Poonma Atkins MA * Little interest or pleasure in doing things Answer Date of Assessment Author Not at all 05/31/2025 1:58 PM EDT Shanelle Atkins MA * Feeling down, depressed, or hopeless Answer Date of Assessment Author Not at all 05/31/2025 1:58 PM EDT Shanelle Atkins MA * Trouble falling or staying asleep, or sleeping too much Answer Date of Assessment Author Not at all 05/31/2025 1:58 PM EDT Shanelle Atkins MA * Feeling tired or having little energy Answer Date of Assessment Author Not at all 05/31/2025 1:58 PM EDT Shanelle Atkins MA * Poor appetite or overeating Answer Date of Assessment Author Not at all 05/31/2025 1:58 PM EDT Shanelle Atkins MA * Feeling bad about yourself - or that you are a failure or have let yourself or your family down Answer Date of Assessment Author Not at all 05/31/2025 1:58 PM EDT Shanelle Atkins MA * Trouble concentrating on things, such as reading the newspaper or watching television Answer Date of Assessment Author Not at all 05/31/2025 1:58 PM EDT Shanelle Atkins MA * Moving or speaking so slowly that other people could have noticed? Or the opposite - being so fidgety or restless that you have been moving around a lot more than usual. Answer Date of Assessment Author Not at all 05/31/2025 1:58 PM EDT Shanelle Atkins MA * Thoughts that you would be better off or hurting yourself in some way Answer Date of Assessment Author Not at all 05/31/2025 1:58 PM RANT Shanelle Atkins MA * Patient Health Questionnaire-9 Score Answer Date of Assessment Author 0 05/31/2025 1:58 PM RANT Shanelle Atkins MA * Over the last 2 weeks, how often have you been bothered by any of the following problems? Question Answer Date of Assessment Author Feeling nervous, anxious, or on edge 0 05/31/2025 1:58 PM EDT Poonam Atkins MA Not being able to stop or co ntrol worrying 0 05/31/2025 1:58 PM RANT Poonam Atkins MA Worrying too much about diff erent things 0 05/31/2025 1:58 PM EDT Poonam Atkins MA Trouble relaxing 0 05/31/2025 1:58 PM EDT Poonam De La Cruz MA Being so restless that it is hard to sit still 0 05/31/2025 1:58 PM EDT Poonam Atkins MA Becoming easily annoyed or irritable 1 05/31/2025 1:58 PM EDT Poonam Atkins MA Feeling afraid as if somethi ng awful might happen 0 05/31/2025 1:58 PM EDT Poonam Atkins MA POP-7 Total Score 1 05/31/2025 1:58 PM EDT Poonam Atkins MA documented as of this encounter Plan of Treatment Upcoming Encounters Date Type Department Care Team (Late st Contact Info) Description 06/15/2025 3:15 PM EDT Office Visit [facility] [address], [place] [phone] Araceli Keita FNP [address] [place] [address] Scheduled Orders Name Type Priority Associated Diagnoses Orde r Schedule CBC auto differential Lab Routine Adult wellness visit Expected: 05/31/2025 (Approximate), Expires: 05/29/2026 Comprehensive Metabolic Panel Lab Routine Adult wellness visit Expected: 05/31/2025 (Approximate), Expires: 05/31/2026 TSH Lab Routine Adult wellness visit Expected: 05/31/2025 (Approximate), Expires: 05/31/2026 Hepatitis B surface antigen, EIA Lab Routine Adult wellness visit Expected: 05/31/2025 (Approximate), Expires: 05/31/2026 Hepatitis C Antibody with Reflex to HCV, RNA, Quantitative, Real-Time PCR Lab Routine Adult wellness visit Expected: 05/31/2025, Expires: 05/31/2026 HIV-1/2 Antigen and Antibodies, Fourth Generation, with Reflexes Lab Routine Adult wellness visit Expected: 05/31/2025 (Approximate), Expires: 05/31/2026 Vitamin D, 25-Hydroxy, Total, Immunoassay Lab Routine Adult wellness visit Expected: 05/31/2025 (Approximate), Expires: 05/31/2026 Chlamydia/N. Gonorrhoeae, PCR, Urine Lab Routine Adult wellness visit Ordered: 05/31/2025 documented as of this encounter Visit Diagnoses Diagnosis Adult wellness visit- Primary documented in this encounter Additional Health Concerns Assessment Noted Time PHQ-9 Depression Total Score: 0 05/31/20 25 1:58 PM EDT documented as of this encounter Care Teams Engraver Tire Mold Relationship Specialty Start Date End Date Dary Noguera MD [address] [place] [address] PCP - General Family Medicine 09/30/19 documented as of this encounter
--- OUTSIDE RECORDS SUMMARY | 2025-05-31 14:48 | XMS_ITS | Clinical Summary ---
Author Organization [employer] Address [address] [place] [address] 7t [place] [address] Care Team Providers Care Social Media Coordinator Name Role Phone Dary Noguera MD Primary Care Provide r Allergies No known active allergies Medications * This document contains information received from the source organization and may not represent a complete record from that organization. [facility] Covid-19 At Home Test Kit kit USE ACCORDING TO THE OPEN HEARTH FURNACE OPERATOR'S DIRECTIONS 3 Active albuterol 108 (90 Base) MCG/ACT inhaler Inhale 2 puffs every 6 (six) hours if needed for wheezing. 18 g 11 3 Active Diclofenac Sodium 1 % gel Apply thin layer by topical route (quantity as directed on package insert) to affected area of pain 3 times daily as needed. 50 g 3 5 Active Active Problems Problem Noted Date Diagnosed Date PCOS (polycystic ovarian syndrome) 03/30/2025 Costochondritis 03/30/2025 Concussion with no loss of consciousness 025 Family history of KS (myocardial infarction) 07/2025 Concern about STI in female without diagnosis [...] recurrent major depressive disorder, without psychotic features ([facility]/HCC) 03/06/2024 Fever 05/06/2023 Assessment & Plan (05/06/2023 5:52 AM EDT): Constellation of symptoms suggestive of many viral, bacterial, or parasitic infections, especially with recent travel history to /[facility] - vital signs stable and pt improving [...] and cardiovascular exercise Vitamin D deficiency 03/23/2021 Low grade squamous intraepit helial lesion (LGSIL) on cervicovaginal cytologic smear 11/28/2017 Resolved Problems Problem Noted Date Diagnosed Date Resolved Date Depression with anxiety 02/14/202403/19 Assessment & Plan (02/14/2024 4:49 PM EDT): BHN referral We talked about non-medication interventions for anxiety including exercise, meditation, counseling, mindfulness practices, zoltan chi. Also recommend consideration for medication start for persistent daily anxiety negatively impacting quality of life and activities. Encounters Date Type Department Care Team Description 05/31/2025 1:45 PM EDT Office Visit [address] [address] Araceli Keita FNP Adult wellness visit (Primary Dx) 05/31/2025 Travel 05/24/2025 Patient Outreach [facility] [address] [place] [address] Dary Noguera MD Pre-visit Planning (SDOH unable to reach LVM ) 05/04/[address] [address] Dary Noguera MD r/s from 05/10/25 provider out 04/30/2025 Patient Outreach [address] [address] Dary Noguera MD Pre-visit Planning ((Unable to reach for PVP screening or LVM) to be completed in office ) 03/26/2025 3:00 PM EDT Office Visit [facility] [address] [place] [address] Jess Mulligan MD Costochondritis (Primary Dx); Dietary counseling; Exercise counseling; Overweight; Concussion without loss of consciousness, subsequent encounter; Family history of KS (myocardial infarction) 03/26/2025 Travel 03/26/[address] [address] Dary Noguera MD Nurse Triage 03/02/[address] [address] Dary Noguera MD SEP RECALL from Last 3 Months Immunizations Immunization Administration Dates Next Due Influenza, IIV3, injectable 09/05/2010 Tdap 08/03/2017,09/05/2010 Social History Tobacco Use Types Packs/Day Years Used Date Smoking Tobacco: Never Passive Smoke Exposure: Never Smokeless Tobacco: Never Tobacco Cessation:Counseling Given: Not Answered Depression Answer Date Recorded Patient Health Questionnaire-9 Score 0 05/31/2025 Patient Health Questionnaire-9 Score 0 05/31/2025 Last PHQ-9: Questionnaire Data Not on file 1 Housing Stability Answer Date Recorded What is your housing situation today? I have chhaya sing 05/31/[address] you li [...] Mass Index 27.64 05/31/2025 1:50 PM EDT Plan of Treatment Upcoming Encounters Date Type Department Care Team (Late st Contact Info) Description 06/15/2025 3:15 PM EDT Office Visit [facility]IC[facility] [address] [place] [address] Araceli Keita, CATHODIC PROTECTION TECHNICIAN [address] [place] [address] Health Maintenance Due Date Last Done Comments Family Planning (PISQ) 12/24/2003 Pap Smear 07/05/2025 07/05/2022, 07/05/2022 Influenza Vaccine (#1) 2026 09/05/2010 Postp oned from 04/19/2025 (Patient Refused) Alcohol/Substance Use Screening 05/31/2026 05/31/2025 COVID-19 Vaccine (2023- season) 2026 Postponed from 04/19/2025 (Patient Refused) Depression Screening 05/31/2026 05/31/2025, 05/31/20 Disability Screening 05/31/2026 05/31/2025 HPV Vaccines (1 - 3-dose series) 05/31/2026 Postponed from 12/24/2003 (Patient Refused) Hepatitis B Vaccines (1 of 3 - 19+ 3-dose series) 05/31/2026 Postponed from 12/24/2007 (Patient Refused) SDOH Screening 05/31/2026 05/31/2025 Tobacco Screening 05/31/2026 05/31/2025 Lipid Panel 11/30/2026 11/30/2021 Cervical Cancer Screening 07/05/2027 HPV/Cotest 07/05/2027 07/05/2022, 06/19, 10/29/2019 DTaP/Tdap/Td Vaccines (3 - Td or Tdap) 08/03/2027 08/03/2017, 09/05/2010 Zoster Vaccines (1 of 2) 2038 RSV [...] patient's age to complete this topic Meningococcal B Vaccine Aged Out No l onger eligible based on patient's age to complete this topic Meningococcal Vaccine Aged Out No zana loco eligible based on patient's age to complete this topic Pneumococcal Vaccine: Pediatrics (0 to 5 Years) and At-Risk Patients (6 to 49) Years Aged Out No longer eligible based on patient's age to complete this topic RSV under 20 months Aged Out No longe r eligible based on patient's age to complete this topic Rotavirus Vaccines Aged Out No longer eligible based on patient's age to complete this topic Procedures Procedure Name Priority Date/Time Associated Diagnosis Comments ECG 12-LEAD Routine 03/26/2025 3:47 PM EDT Costochondritis HEPATITIS C AB W/REFL TO HCV RNA, QN, PCR Routine 10/03/2024 10:25 AM EST Concern about STI in female without diagnosis HIV 1/2 ANTIGEN/ANTIBODY, FOURTH GENERATION W/RFL Routine 10/03/2024 10:25 AM EST Concern about STI in female without diagnosis ZZZ HISTORICAL HPV E6/E7 RFLX RUBY 16 18/45 Routine 07/05/2022 3:21 PM EST PAP SMEAR Routine 07/05/2022 3:21 PM EST LIPID PANEL, STANDARD Routine 11/30/2021 4:02 PM EDT from Last 3 Months or Most Recently Relevant to Health Maintenance Results * ECG 12 lead (03/26/2025 3:47 PM EDT) Narrative Jess Mulligan MD - 03/26/2025 3:47 PM EDT NSR, normal intervals and axis, no St-T segment changes, no arrhythmia, VR 51 us Jess Mulligan MD ECG ORDERABLES Final Result * Hepatitis C Antibody with Reflex to HCV, RNA, Quantitative, Real-Time PCR (10/03/2024 10:25 AM EST) Hepatitis C Antibody Nonreactive Nonreactive [facility] Comment:Antibodies to HCV no t detected; does not exclude early acuteHCV infection. Blood Venous blood specimen / Unknown 10/03/2024 10:25 AM EST 10/03/2024 10:25 AM EST Niles Navarrete MD LAB BLOOD ORDERABLES Final Result [facility] [address] [place] [address] [phone] * HIV-1/2 Antigen and Antibodies, Fourth Generation, with Reflexes (10/03/2024 10:25 AM EST) HIV AB/AG Nonreactive Nonreactive [facility] Comment:HIV-1 p24 Ag and/or HIV-1/HIV-2 Ab not detected.A test result that is nonreactive does not exclude thepossibility of exposure to or infection with HIV-1 and/orHIV-2. Nonreactive results in this assay for individualswith prior exposure to HIV-1 and/or HIV-2 may be due toantigen and antibody levels that are below the limit ofdetection of this assay.The [employer] HIV Ag/Ab Combo assay result andsupplemental assay results should be interpreted inconjunction with the patient's clinical presentation,history and other laboratory results. If the results areinconsistent with clinical evidence, additional testing issuggested to confirm the result. Blood Venous blood specimen / Unknown 10/03/2024 10:25 AM EST 10/03/2024 10:25 AM EST Niles Navarrete MD LAB BLOOD ORDERABLES Final Result Performing Organization Address City/[facility]/ZIP Co de Phone Number [facility] [address] [place] [address] [phone] * HPV E6/E7 RFLX RUBY 16 18/45 (07/05/2022 3:21 PM EST) HPV mRNA E6/E7 rflx Not Detected Not Detected [facility] Comment: Methodology: Propeller Tester-Mediated Amplification This assay detects E6/E7 viral messenger RNA (mRNA) from 14 high-risk HPV types (16,18,31,33,35,39,45,51,52,56,58,59,66,68). Cervical sources are required for HPV testing. If a vaginal source from a patient who has had a total hysterectomy with removal of cervix was submitted, please contact the testing laboratory for alternative testing options. For additional information, please refer to http://education.Aimetis/faq/WYO047f1 (This link if provided for information/ educational purposes only.) THIS TEST WAS PERFORMED AT: [facility] [address] [place] [address],[place] [address] CHANNING LYNNE MD 07/05/2022 3:21 PM EST Joanna Hernandez HISTORICAL/NON ORDERABLE LABS Fi nal Result [facility] * Pap Smear (07/05/2022 3:21 PM EST) 07/05/2022 3:21 PM EST 07/06/2022 9:50 AM EST Narrative [facility] - 07/27/2022 5:28 PM EST ----- ------- Name: Yanira Garcia Age/Sex: 31/F : 1990 Unit#: [id number] Attend Dr: Joanna Hernandez [facility] Re07/05/22 Status: DEP REF Location: LNP Disch: ----- ------- SPEC : [id number] RECD: 07/06/22 STATUS: AMY SANTOS NUM: [id number] PAYAM: 07/05/22-[address] [facility] [address]: Joanna Hernandez [facility] ENTERED: 07/06/224 SP TYPE: Pap Smr OT DR: ORDERED: Pap Smear Interpretation Satisfactory for evaluation. Negative for intraepithelial lesion or malignancy. Moderate inflammation. Coccobacilli consistent with shift in vaginal greg. HPV mRNA E6/E7: NOT DETECTED This assay detects E6/E7 viral messenger RNA (mRNA) from 14 high-risk HPV types (16, 18, 31, 33, 35, 39, 45, 51, 52, 56, 58, 59, 66, 68) HPV testing performed by [employer], [place], [place]. See reference laboratory portion of the EMR for entire report. Clinical Information LMP: 06/21/22 Previous PAP test: 10/29/19, [facility] Material Received ThinPrep-Cervical ----- ------- Signed (signature on file) Faith Andrade 07/27/22 1728 ----- ------- END OF REPORT [facility] External Provider LAB CYT OLOGY ORDERABLES Final Result Performing Organization Address [facility]/ZIP Co de Phone Number [facility] [address] [place] [address] [phone] * (ABNORMAL) LIPID PANEL, STANDARD (11/30/2021 4:02 PM EDT) Pathologist [facility] Chol/HDLC Ratio 3.3 <5.0 (calc) [facility] Cholesterol, Total 163 <200 mg/dL [facility] HDL Cholesterol 49(L) > OR = 50 mg/dL [facility] LDL Cholesterol 98 mg/dL (calc) [facility] Comment: Reference range: <100 Desirable range <100 mg/dL for primary prevention; <70 mg/dL for patients with CHD or diabetic patients with > or = 2 CHD risk factors. LDL-C is now calculated using the Michael-Pelaez calculation, which is a validated novel method providing better accuracy than the Friedewald equation in the estimation of LDL-C. Michael SS et al. BAR. 2013;310(19): 0397-2320 (http://education.Social Tables.[employer]/faq/NYA138) Non-HDL Cholesterol 114 <130 mg/dL (calc) [facility] Comment: For patients with diabetes plus 1 major ASCVD risk factor, treating to a non-HDL-C goal of <100 mg/dL (LDL-C of <70 mg/dL) is considered a therapeutic option. Triglycerides 69 <150 mg/dL [facility] 11/30/2021 4:02 PM EDT Dary Mg MD LAB BLOOD ORDERABLES Final Result Performing Organization Address City/[facility]/ZIP Co de Phone Number [facility] [address] from Last 3 Months or Most Recently Relevant to Health Maintenance [place] [place] [address] FEDERAL Care Teams Social Media Coordinator Relationship Specialty Start Date End Date Dary Noguera MD [address] [place] [phone] PCP - General Family Medicine 09/30/19
--- OUTSIDE RECORDS SUMMARY | 2025-05-31 14:48 | XMS_ITS | Clinical Summary ---
Author Organization [facility] Address [address] [place] [address] Care Team Providers Care Cold Strip Roller Name Role Phone Unavailable Primary Care Provider [...] Health Maintenance Due Date Last Done Comments Anxiety Screening 1990 Diabetes Screening 1990 HPV Screening 1990 Hepatitis C Screening 1990 Pap + HPV 1990 Tobacco Cessation Counseling (#1) 1990 Tobacco Screening 1990 HIV Screening 12/24/2003 Relationship Safety Screening/Counseling 12/24/2003 Imm-DTaP/Tdap/Td (1 - Tdap) 12/24/2007 Imm-Hepatitis B (1 of 3 - 19+ 3-dose series) 8 Imm-Pneumococcal (1 of 2 - PCV) 12/24/2007 Cervical Cancer Screening 2009 Pap Smear 2009 Imm-HPV (1 - 3-dose SCDM series) 12/24/2015 Dental BW 10/25/2023 10/22/2022 Dental Examination 10/25/2023 10/22/2022 Dental Perio Charting 10/25/2023 10/22/2022 Dental Prophy 10/25/2023 10/22/2022 Alcohol and Drug Screen 08/19/2024 Depression Annual Screen 08/19/2024 [id number] ( season) 2025 Imm-Influenza (#1) 2025 Hypertension Screening (#1) 10/28/2025 Dental FMX/Pano 10/25/2027 [...] Most Recently Relevant to Health Maintenance Insurance [place] DENT[place] [facility]
--- OUTSIDE RECORDS SUMMARY | 2025-05-31 14:48 | XMS_ITS ---
Author Name [facility] Organization Unknown Care Team Organization Name Specialty Phone Email Start Date End Da te [employer] 11/29/2023 0 04/18/2025
--- OUTSIDE RECORDS SUMMARY | 2025-05-31 14:48 | XMS_ITS | Encounter Summary ---
Author Organization [employer] Address [address] [place] [address] 7[address] [place] [address] Care Team Providers Care Crater And Packer Name Role Phone Dary Noguera MD Primary Care Provide r Encounter Details Date Type Department Care Team (Latest Contact Info) Description 05/31/2025 Travel Social History Tobacco Use Types Packs/Day [...] PM EDT documented as of this encounter Functional Status * Over the past 2 weeks, how often have you been bothered by any of the following problems? Question Answer Date of Assessment Author Patient Health Questionnaire -2 Score 0 05/31/2025 1:58 PM EDT Poonam Atkins MA * Little interest or pleasure in doing things Answer Date of Assessment Author Not at all 05/31/2025 1:58 PM EDT Shanelle Atkins MA * Feeling down, depressed, or hopeless Answer Date of Assessment Author Not at all 05/31/2025 1:58 PM EDT Poonam Atkins MA * Trouble falling or staying [...] 1:58 PM EDT Shanelle Atkins MA * Patient Health Questionnaire-9 Score Answer Date of Assessment Author 0 05/31/2025 1:58 PM EDT Shanelle Atkins MA * Over the last 2 weeks, how often have you been bothered by any of the following problems? Question Answer Date of Assessment Author Feeling nervous, anxious, or on edge 0 05/31/2025 1:58 PM EDT Poonam Atkins MA Not being able to stop or co ntrol worrying 0 05/31/2025 1:58 PM EDT Poonam Atkins MA Worrying too much about [...] Description 06/15/2025 3:15 PM EDT Office Visit [facility] [address] [place] [address] Araceli Keita FNP [address] [place] [address] documented as of this encounter Visit Diagnoses Not on filedocumented in this encounter Additional Health Concerns Assessment Noted Time PHQ-9 Depression Total Score: 0 05/31/20 25 1:58 PM EDT documented as of this encounter Care Teams Crater And Packer Relationship Specialty Start Date End Date Dary Noguera MD [address] [place] [address] PCP - General Family Medicine 09/30/19 documented as of this encounter
[2025-05-31 16:01] LABS: MANUAL DIFF FLAG NO
[2025-05-31 16:20] LABS: Hematocrit 44.3 % (37.0-47.0); Hemoglobin 14.0 g/dl (12.0-16.0); Imm Gran Abs Auto 0.04 X10*3/uL (0.00-0.03); Imm Gran Pct Auto 0.4 % (0.0-0.4); Lymphocytes Absolute Auto 2.6 X10*3/uL (1.2-4.9); Mean Corpuscular HGB Conc 31.6 g/dl (31.0-35.0); Mean Corpuscular Hemoglobin 26.6 pg (27.0-33.0); Mean Corpuscular Volume 84.2 fL (80.0-98.0); NRBC Abs Auto 0.000 X10*3/uL (0.0-0.012); NRBC Pct Auto 0.0 /100WBC (0.0-0.2); Platelet Count 227 X10*3/uL (160-400); Red Blood Count 5.26 X10*6/uL (4.20-5.50); White Blood Count 11.1 X10*3/uL (4.8-10.8)
[2025-05-31 16:36] LABS: Alanine Aminotransferase 14 U/L (0-31); Albumin Level 4.8 g/dL (3.5-5.0); Alkaline Phosphatase 53 U/L (39-117); Anion Gap 9 (12-20); Aspartate Amino Transferase 16 U/L (5-31); Blood Urea Nitrogen 9 mg/dL (9-16); Calcium 9.2 mg/dL (8.4-10.2); Carbon Dioxide 25 mmol/L (22-29); Chloride 110 mmol/L (96-108); Estimated Glomerular Filt Rate > 60; Potassium 4.4 mmol/L (3.3-5.1); Sodium 140 mmol/L (135-145); Total Protein 7.5 g/dL (6.5-8.0)
[2025-05-31 17:00] LABS: Thyroid Stimulating Hormone 0.90 uIU/mL (0.32-4.0)
[2025-06-01 04:29] LABS: HBsAGNum1 0.51 S/CO (0.00-0.99); HIV Num 1 0.06 S/CO (0.00-0.99); Hepatitis B Surface Antigen Negative (Negative); ~HepC Num1 0.06 S/CO (0.00-0.79); ~Hepatitis C Antibody Nonreactive (Nonreactive)
[2025-06-01 06:08] LABS: CT PCR Urine NOT DETECTED (Not Detect.); NG PCR Urine NOT DETECTED (Not Detect.)
== END 2025-05-31 14:44 | disposition home or self-care (01) ==
LOC: HO.HHCL 14:43
PROVIDERS: PCP Internal Medicine; Visit Provider Nurse Practitioner Family
DX: Z00.00 Encounter for general adult medical examination without abnormal findings (principal); Z20.2 Contact with and (suspected) exposure to infections with a predominantly sexual mode of transmission; Z13.29 Encounter for screening for other suspected endocrine disorder; Z11.4 Encounter for screening for human immunodeficiency virus [HIV]; Z13.21 Encounter for screening for nutritional disorder; Z11.59 Encounter for screening for other viral diseases
CPT/HCPCS: 80053; 82306; 84443; 85025; 86803; 87340; 87389; 87491; 87591